=== PATIENT | male | born 1960 | race Caucasian/White ===

== ENCOUNTER 2019-05-01 07:18 | Emergency (ER) | payer OTHER ==
[2019-05-01 07:35] VITALS: BP 138/84
--- NOTE | 2019-05-01 07:52 | UC ---
Dental HPI - HPI Summary HPI Summary: right jaw pain x 1 day pain is 6 out 10 , worse with opening and closing his mouth and chewing better with rest, sudden onset, woke up in the morning with the pain no known injury , denies grinding teeth , no fever, no chills, no ear pain - History of Current Complaint Chief Complaint: UCUpperExtremity Stated Complaint: RT JAW PAIN Time Seen by Provider: 05/01/19 07:33 Hx Obtained From: Patient Onset/Duration: Sudden Onset, Lasting Days - 1, Still Present Severity: Moderate Pain Intensity: 0 Pain Scale Used: 0-10 Numeric - 6 Aggravating Factor(s): Chewing Alleviating Factor(s): OTC Meds - Allergies/Home Medications Allergies/Adverse Reactions: Allergies Allergy/AdvReac Type Severity Reaction Status Date / Time "some type of anti-histamine" Allergy "It's not Uncoded 05/01/19 07:36 life threatening" Home Medications: Home Medications Cholecalciferol (Vitamin D3) [Vitamin D3] 2,000 units PO DAILY 08/15/13 [ History Confirmed 05/01/19] Gabapentin 300 mg PO DAILY 03/20/18 [History Confirmed 05/01/19] Naproxen [Naproxen 500 mg tab] 500 mg PO BID #20 tablet 05/01/19 [Rx] Rosuvastatin (NF) [Crestor (NF)] 5 mg PO DAILY 05/01/19 [History Confirmed 04/30] PMH/Surg Hx/FS Hx/Imm Hx - Additional Past Medical History Additional PMH: CHEST MELANOMA- SURGERY gout - Surgical History Surgical History: Yes Surgery Procedure, Year, and Place: MELANOMA - REMOVED CHEST, 1999, [facility] [place]. SURGERY RT KNEE - Family History Known Family History: Positive: Other - Father has Hx of gout - Social History Alcohol Use: None Substance Use Type: Marijuana Substance Use Comment - Amount & Last Used: CBD oil Smoking Status (MU): Never Smoked Tobacco Have You Smoked in the Last Year: No Review of Systems All Other Systems Reviewed And Are Negative: Yes Is Patient Immunocompromised?: No Physical Exam Triage Information Reviewed: Yes Appearance: Well-Appearing, No Pain Distress, Well-Nourished Vital Signs: Initial Vital Signs Temp 98.7 F 05/01/19 07:32 Pulse 79 05/01/19 07:32 Resp 18 05/01/19 07:32 BP 138/84 05/01/19 07:32 Pulse Ox 98 05/01/19 07:32 Vital Signs Reviewed: Yes Eye Exam: Normal Eyes: Positive: Conjunctiva Clear ENT: Positive: Normal ENT inspection, Hearing grossly normal, Pharynx normal Dental: Positive: Other: - tenderness right TMJ. Negative: Percussion Tenderness @, Gross Decay/Caries @, Dental Fracture @, Abscess @ Neck: Positive: Supple, Nontender, No Lymphadenopathy Respiratory: Positive: Chest non-tender, Lungs clear, Normal breath sounds Cardiovascular: Positive: RRR, No Murmur, Pulses Normal Skin Exam: Normal Dental Complaint Course/Dx - Differential Dx/Diagnosis Provider Diagnosis: TMJ (temporomandibular joint disorder) Discharge ED - Sign-Out/Discharge Documenting (check all that apply): Patient Departure All imaging exams completed and their final reports reviewed: No Studies - Discharge Plan Condition: Stable Disposition: HOME Prescriptions: Naproxen [Naproxen 500 mg tab] 500 mg PO BID #20 tablet Patient Education Materials: Temporomandibular Disorder (ED) Referrals: Dixon Perez MD [Primary Care Provider] - - Billing Disposition and Condition Condition: STABLE Disposition: Home
== END 2019-05-01 07:46 | disposition home or self-care (01) ==
LOC: UCCORT 07:18
DX: M26.601 Right temporomandibular joint disorder, unspecified (principal); M10.9 Gout, unspecified; Z88.8 Allergy status to other drugs, medicaments and biological substances
CPT/HCPCS: 99212; G0463

== ENCOUNTER 2024-01-30 10:27 | Observation (INO) ==
[~2024-01-30 10:27] MED LIST: HYDROmorphone 1 MG/1 ML SYRINGE IV PRN; Naloxone 0.4 mg VIAL 0.4 mg/ml 1 ml VIAL IV PRN; Ondansetron 4 mg VIAL 2 MG/ML 2 ml VIAL IV PRN; fentaNYL 100 mcg/2 ml 50 MCG/ML VIAL IV PRN
[2024-01-30] MEDS ORDERED: Lidocaine 1% w EPI 1:100,000 MDV 50 ML VIAL ONE (10:44)
[2024-01-30] MEDS ORDERED: Thrombin 5,000 UNITS 1 APPLIC KIT - topical use - TOPICAL ONE (10:45)
[2024-01-30] MEDS ORDERED: ceFAZolin VIAL VIAL ONE (10:45)
[2024-01-30] MEDS ORDERED: Scopolamine 1 mg/72hr PATCH ONE (11:36)
[2024-01-30] MEDS ORDERED: Chlorhexidine MOUTHWASH 0.12% 15 ML UDC ONE (11:41)
[2024-01-30 11:48] LABS: Rapid COVID-19 Molecular Undetected (Undetected)
[2024-01-30] MEDS: Scopolamine 1 mg/72hr PATCH TRANSDERM ONE (11:53)
[2024-01-30] MEDS ORDERED: Propofol 10 MG/ML 20 ML BTL ONE ×2 (12:17→14:49)
[2024-01-30] MEDS ORDERED: Dexamethasone IV 4 MG/ML VIAL 1 ml VIAL ONE (12:17)
[2024-01-30] MEDS ORDERED: Ondansetron 4 mg VIAL 2 MG/ML 2 ml VIAL ONE (12:17)
[2024-01-30] MEDS ORDERED: Lidocaine 2% PF 5 ML VIAL ONE (12:17)
[2024-01-30] MEDS ORDERED: fentaNYL 100 mcg/2 ml 50 MCG/ML VIAL ONE (12:20)
[2024-01-30] MEDS ORDERED: Midazolam 2 mg/2 ml VIAL 1 mg/ml 2 ml VIAL (2 mg) ONE (12:20)
[2024-01-30] MEDS ORDERED: Rocuronium 50 mg VIAL 10 mg/ml 5 ml VIAL (50 mg) ONE (12:53)
[2024-01-30] MEDS ORDERED: Remifentanil 2 MG VIAL ONE (13:07)
[2024-01-30] MEDS ORDERED: HYDROmorphone 0.5 MG/0.5 ML SYRINGE ONE (14:30)
[2024-01-30] MEDS ORDERED: Glycopyrrolate IV 0.2 MG/ML 1 ML VIAL ONE (14:49)
[2024-01-30] MEDS ORDERED: Calcium Carb (TUMS) 500 mg CHEW TAB PO PRN (15:22)
[2024-01-30] MEDS ORDERED: Dextran 70/Hypromellose Tears Eye Drops 15 ml BTL (for Artificials Tears) BOTH EYES PRN (15:22)
[2024-01-30] MEDS ORDERED: Benzocaine/Menthol LOZ MT PRN (15:22)
[2024-01-30] MEDS ORDERED: Senna TAB 8.6 mg TAB PO PRN (15:22)
[2024-01-30] MEDS ORDERED: Morphine 2 MG/ML SYRINGE IV PRN (15:22)
[2024-01-30] MEDS ORDERED: Ondansetron 4 mg VIAL 2 MG/ML 2 ml VIAL IV PRN (15:22)
[2024-01-30] MEDS ORDERED: Phenol 1.4% Throat Spray BTL MT PRN (15:22)
[2024-01-30] MEDS: Lactated Ringers 1000 ml BAG 1,000 ML IV SCH ×2 (17:31→18:06)
[2024-01-30] MEDS: Buffered Lidocaine 1% SYRIN 1 ml INTRADERM ONE (18:03)
[2024-01-30] MEDS: Acetaminophen IV 1 GM/100ML 1,000 MG/100 ML BAG IV ONE (18:03)
[2024-01-30] MEDS: Vancomycin 1,250 MG in NS 0.9% 250 ml 250 ML IVPB ONE (18:08)
[2024-01-31] MEDS: Cholecalciferol (VIT D3) 1,000 unit TAB PO SCH (07:47)
[2024-01-31 09:51] VITALS: BP 123/57
== END 2024-01-31 12:45 | disposition home or self-care (01) ==
LOC: OR 10:27 → SSU 10:27
PROVIDERS: ADMIT Neurological Surgery; ATTEND Neurological Surgery
PROC: O.NEPCD (2024-01-30 13:00)